=== PATIENT | male | born 1995 | race African-American/Black ===

== ENCOUNTER 2017-10-12 08:55 | Emergency (ER) | payer OTHER ==
[2017-10-12] MEDS ORDERED: HYDROcodone/Acetaminophen 10/325 mg Tablet ONE (09:44)
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
== END 2017-10-12 10:40 | disposition home or self-care (01) ==
LOC: ERS 08:55
DX: S43.015A Anterior dislocation of left humerus, initial encounter (principal); S43.014A Anterior dislocation of right humerus, initial encounter; W50.0XXA Accidental hit or strike by another person, initial encounter
CPT/HCPCS: 23650